=== PATIENT | male | born 1955 | race Caucasian/White ===

== ENCOUNTER → 2018-01-24 09:38 | Outpatient (CLI) | payer OTHER, SELFPAY ==
[2018-01-24 10:54] LABS: Add Manual Diff / Slide Review NO; Basophils Percent Auto 1.2 % (0-2); Eosinophils Percent Auto 3.7 % (2-4); Hematocrit 41.2 % (41-53); Hemoglobin 14.1 g/dL (13.5-17.5); Lymphocytes Percent Auto 26.9 % (25-40); Mean Corpuscular HGB Conc 34.3 % (30-36); Mean Corpuscular Hemoglobin 32.2 PG (26-34); Mean Corpuscular Volume 93.9 fL (80-100); Monocytes Percent Auto 9.9 % (3-14); Neutrophils Absolute Auto 2600 /uL (3000-5900); Neutrophils Percent Auto 58.3 % (50-75); Platelet Count 202 X10^3/uL (150-400); Red Blood Cell Count 4.39 X10^6/uL (4.5-5.9); Red Cell Distribution Width 13.1 % (11.6-14.8); White Blood Cell Count 4.4 X10^3/uL (4.5-11.0)
[2018-01-24 11:10] LABS: Alanine Aminotransferase 32 IU/L (21-72); Albumin 4.1 g/dL (3.5-5.0); Albumin Globulin Ratio 1.4 (1.0-2.8); Alkaline Phosphatase 43 U/L (38-126); Aspartate Aminotransferase 25 IU/L (17-59); BUN Creatinine Ratio 27.8 (6-22); Bilirubin Total 0.8 mg/dL (0.2-1.3); Blood Urea Nitrogen 25 mg/dL (9-20); Calcium 9.5 mg/dL (8.4-10.2); Carbon Dioxide 28 mmol/L (22-32); Chloride 106 mmol/L (98-107); Cholesterol 143 mg/dL (140-199); Estimated Glomerular Filt Rate > 60.0 mL/min (>60); Globulin 2.9 g/dL (1.7-4.1); Glucose 99 mg/dL (80-110); HDL Cholesterol 52 mg/dL (40-60); HEMOLYSIS < 15 (0-50); LDL Cholesterol Calculated 83 mg/dL (<100); Potassium 4.9 mmol/L (3.4-5.1); Sodium 141 mmol/L (137-145); Triglycerides 41 mg/dL (35-150)
== END ==
PROVIDERS: Visit Provider Internal Medicine
DX: C61 Malignant neoplasm of prostate (principal); Z00.01 Encounter for general adult medical examination with abnormal findings
CPT/HCPCS: 36415; 80053; 80061; 85025

== ENCOUNTER → 2018-01-25 12:16 | Outpatient (CLI) | payer OTHER, SELFPAY ==
--- NOTE | 2018-01-25 | DI.CT.S_ITS ---
PROCEDURE: CT SOFT TISSUE NECK W CON INDICATIONS: ENLARGED LYMPH NODE TECHNIQUE: After the administration of intravenous contrast, 3.0 mm axial sections acquired from the sella to the aortic arch. Additional oblique axial 3.0 mm sections acquired through the pharynx. 3 mm thick coronal and sagittal reformats were generated. For radiation dose reduction, the following was used: automated exposure control. COMPARISON: None. FINDINGS: Image quality: Excellent. Lymph nodes: No enlarged lymph nodes seen throughout the neck. The largest node is immediately posterior to the right mandibular ramus, deep to the inferior margin of the parotid gland and measures 8 mm in short diameter. Vessels: Visualized vasculature appears patent. The internal carotid arteries are tortuous bilaterally. The left vertebral artery is dominant. Neck spaces: The oropharynx, nasopharynx, and pharynx demonstrate no mucosal lesions. The vocal cords, false vocal cords, pyriform sinuses, epiglottis, vallecula, and tongue base all appear normal. Extramucosal spaces appear unremarkable. Glands: The parotid and submandibular glands appear normal. Thyroid gland appears normal. Miscellaneous: Visualized brain and orbits appear normal. Lung apices appear clear. Superficial soft tissues appear normal. Bones: No suspicious bony lesions. Cervical spine shows degenerative disc disease with narrowing C3-C6. Visualized sinuses and mastoids appear unremarkable. IMPRESSION: 1. No soft tissue mass or asymmetry. No lymphadenopathy by size criteria. Salivary and thyroid glands appear normal. Dictated by: Alfredito Riley M.D. on 01/25/2018 at 13:02 Approved by: Alfredito Riley M.D. on 01/25/2018 at 13:10
== END ==
PROVIDERS: Visit Provider Internal Medicine
DX: R59.9 Enlarged lymph nodes, unspecified (principal)
CPT/HCPCS: 70491; Q9967

== ENCOUNTER → 2019-10-31 15:26 | Outpatient (CLI) | payer OTHER, SELFPAY ==
[2019-11-02 00:53] LABS: SARS CoV19 IgG Negative (Negative)
== END ==
PROVIDERS: PCP Internal Medicine; Referring Provider Internal Medicine; Visit Provider Internal Medicine
DX: Z03.818 Encounter for observation for suspected exposure to other biological agents ruled out (principal)
CPT/HCPCS: 36415; 86769

== ENCOUNTER → 2020-04-27 18:37 | Outpatient (ROUT) | payer OTHER, SELFPAY | PROVIDERS: PCP Internal Medicine; Visit Provider Internal Medicine | DX: C61 Malignant neoplasm of prostate (principal) | CPT/HCPCS: 87086 ==

== ENCOUNTER → 2022-08-05 09:01 | Outpatient (CLI) | payer OTHER, SELFPAY ==
--- NOTE | 2022-08-05 | DI.NM.S_ITS ---
PROCEDURE: [place] BONE SCAN WHOLE BODY RADIOPHARMACEUTICAL: 21.2 mCi Tc-99m MDP IV. INDICATIONS: Malignant neoplasm of prostate TECHNIQUE: Delayed whole-body scintigrams were obtained approximately 3-4 hours after intravenous injection of radiotracer. Anterior and posterior views were acquired from vertex to feet. Additional left and right oblique views of the pelvis were obtained. COMPARISON: Merged With [facility], NM, NM BONE SCAN WHOLE BODY, 08/26/2021, 14:44. Merged With [facility], CT, CT ABDOMEN PELVIS WITH CONTRAST, 08/16/2021, 9:09. CT, CT SOFT TISSUE NECK W CON, 01/25/2018, 12:27. CT, THORAX WITHOUT CONTRAST, 12/15/2016, 6:56. Outside Facility, RG, CT THORAX WITH CONTRAST, 06/03/2015, 17:25. FINDINGS: There are foci of abnormal uptake involving cervical, thoracic and lumbar spine, sternum, iliac bones bilaterally, left 8th rib, right humeral neck and proximal right femur, consistent with osseous metastases. Compared with the last exam, osseous lesions are decreased in number and intensity. For example, there is lesions in calvarium, medial head of the right clavicle are no longer conspicuous. IMPRESSION: There is improved bone scan but scintigraphic findings of residual metastatic disease. Dictated by: Sandhya Dominguez M.D. on 08/05/2022 at 15:02 Approved by: Sandhya Dominguez M.D. on 08/05/2022 at 15:16
== END ==
PROVIDERS: PCP Internal Medicine; Referring Provider Internal Medicine Hematology & Oncology; Visit Provider Internal Medicine Hematology & Oncology
DX: C61 Malignant neoplasm of prostate (principal); C79.51 Secondary malignant neoplasm of bone
CPT/HCPCS: 78306; A9503

== ENCOUNTER → 2023-12-23 10:41 | Outpatient (CLI) | payer OTHER, SELFPAY ==
--- NOTE | 2023-12-23 | DI.RAD.S_ITS ---
PROCEDURE: XR HIP W PEL IF DONE RT 2V INDICATIONS: Pain in right hip TECHNIQUE: AP pelvis with lateral view(s) of the right hip(s). COMPARISON: [facility], [place], [place] BONE SCAN WHOLE BODY, 08/05/2022, 9:25. [facility], CT, CT ABDOMEN PELVIS WITH CONTRAST, 08/16/2021, 9:09. FINDINGS: Bones: No fractures or dislocations. Pelvic ring appears intact. Mild bilateral femoroacetabular joint space narrowing and juxta-articular osteophytosis. Multiple ill-defined sclerotic lesions predominantly in the right hemipelvis including the iliac bone, inferior pubic ramus and right intertrochanteric region and proximal femoral diaphysis. Soft tissues: The visualized bowel gas pattern is normal. No suspicious soft tissue calcifications. Metallic implants in the prostate gland. IMPRESSION: 1. No definite acute fracture or dislocation. If there is high clinical suspicion for a radiographically occult fracture, recommend cross-sectional imaging for further evaluation. 2. Multiple ill-defined sclerotic lesions predominantly involving the right hemipelvis including the right iliac bone, inferior pubic ramus and right intratrochanteric region and proximal femoral diaphysis, highly suspicious for metastatic disease. Given involvement of the weight-bearing structures, patient is at risk for a pathologic fracture. Consider a bone scan for further evaluation. Dictated by: Carmen Anton M.D. on 12/23/2023 at 15:51 Approved by: Carmen Anton M.D. on 12/23/2023 at 15:55
== END ==
PROVIDERS: PCP Internal Medicine; Referring Provider Internal Medicine; Visit Provider Internal Medicine
DX: M25.551 Pain in right hip (principal); M89.9 Disorder of bone, unspecified
CPT/HCPCS: 73502

== ENCOUNTER → 2024-03-20 12:58 | Outpatient (CLI) | payer OTHER, SELFPAY ==
[2024-03-20 13:50] LABS: Estimated Glomerular Filt Rate > 60 mL/min (>60)
== END ==
PROVIDERS: PCP Internal Medicine; Referring Provider Radiology Diagnostic Radiology; Visit Provider Radiology Diagnostic Radiology
DX: C49.9 Malignant neoplasm of connective and soft tissue, unspecified (principal)
CPT/HCPCS: 36415; 82565

== ENCOUNTER → 2024-03-21 07:55 | Outpatient (CLI) | payer OTHER, SELFPAY ==
--- NOTE | 2024-03-21 07:56 | DI.MRI.S_ITS ---
PROCEDURE: MR PELVIS WO/W CON INDICATIONS: SARCOMA TECHNIQUE: Noncontrast coronal T1 spin echo and STIR, sagittal T1 spin echo with fat saturation and STIR, axial T1 spin echo and T2 fast spin echo with fat saturation. After the administration of contrast, axial/sagittal/coronal T1 spin echo with fat saturation through the pelvis . COMPARISON: [facility], CT, CT BIOPSY BONE SUPERFICIAL, 01/30/2024, 8:45. [facility], MR, MR PELVIS PROSTATE SCREENING PROTOCOL, 01/17/2024, 14:06. [facility], CT, CT CHEST ABD PEL W CON, 03/21/2024, 9:51. FINDINGS: Image quality: Diagnostic Bones: No acute fracture identified in the left pelvic ring. Lumbosacral degenerative changes are present. No significant left hip effusion. Soft tissues: Increased size of the right pelvic lesion centered in the adductor compartment, measuring up to 11 x 13 x 13 cm, this previously measured about 11 cm. Increased size of surrounding pathologic lymph nodes, for example the right external iliac chain measuring 2.4 cm. This soft tissue mass involves the right acetabulum and pubic ring, with a probable nondisplaced pathologic fracture at the inferior pubic ring and superior pubic ring. This also involves the obturator muscles. This displaces the bladder slightly to the left, as well as the rectum. Post treatment changes of the prostate. There are numerous fluid levels and cystic areas within the mass IMPRESSION: Increased size of the right pelvic lesion and surrounding lymphadenopathy, with osseous involvement and right pubic ring pathologic fractures. The mass contains internal fluid levels and cystic components, and displaces the bladder and rectum slightly to the left Dictated by: Ahsan Tellez M.D. on 03/21/2024 at 11:12 Approved by: Ahsan Tellez M.D. on 03/21/2024 at 11:16
--- NOTE | 2024-03-21 07:57 | DI.CT.S_ITS ---
PROCEDURE: CT CHEST ABD PEL W CON INDICATIONS: SARCOMA TECHNIQUE: After the administration of intravenous contrast, 5 mm thick sections acquired from the lung apices to the symphysis. 5 mm coronal and sagittal reformats were performed, with additional 7 mm MIP reformats through the lungs. For radiation dose reduction, the following was used: automated exposure control, adjustment of mA and/or kV according to patient size. COMPARISON: Outside Facility, , CT THORAX WITH CONTRAST, 06/03/2015, 17:25. [facility], CT, CT ABDOMEN PELVIS WITH CONTRAST, 08/16/2021, 9:09. [facility], MR, MR PELVIS WO/W CON, 03/21/2024, 8:02. FINDINGS: Image quality: Diagnostic Lungs and pleura: Peripheral reticulation, moderate. This particularly involves the costophrenic angles. No dense airspace disease or pleural effusions. 1.1 cm right lower lobe pulmonary nodule, not seen in 2015. Other smaller nodules are also present. Mediastinum, heart, and esophagus: Mild distal esophageal wall thickening. No pathologic lymph nodes by size criteria. Mildly enlarged right hilar lymph node is present, probably similar to 2015 measuring 1.1 cm. Heart size is at the upper limit of normal Chest wall and thyroid: Unremarkable Liver: Subcentimeter lesions are too small to characterize, close attention on follow-up suggested. Gallbladder and biliary system: Unremarkable, nondilated Pancreas: The pancreatic duct is mildly prominent at 4-5 mm, similar to prior. No discrete mass Spleen: Nonenlarged Adrenals: No discrete nodules Kidneys: No solid mass or hydronephrosis Vessels and lymph nodes: The main portal vein is patent. No abdominal aortic aneurysm or pathologic lymph nodes by size criteria in the retroperitoneum. Pelvic findings are separately dictated Bowel and peritoneum: No acute small bowel obstruction. No pathologic ascites. Colonic diverticula. No pathologic ascites. Body wall: Tiny fat containing umbilical hernia. Pelvis: Separately dictated. Heterogeneous right pelvic mass is better assessed on MRI, with surrounding lymphadenopathy. The bladder is under distended and not well assessed. The bladder and rectum are slightly displaced to the left. Postsurgical changes of the prostate. Bones: Sclerotic bone lesions are present, compatible with metastases. Density of sclerosis has increased compared to 202. IMPRESSION: Increased size of the pelvic mass and surrounding lymph nodes compared to prior imaging, pelvis findings are better assessed on same-day MRI. New/increased pulmonary nodules suspicious for thoracic metastatic disease. Mildly prominent pancreatic duct at 4-5 mm without discrete mass. Subcentimeter liver lesions are identified, too small to characterize. Close attention on follow-up suggested. Sclerotic bone lesions are more conspicuous than prior imaging, increased sclerosis can be due to treatment effect. Disease progression is also possible. Consider bone scan or PET-CT to assess activity if clinically indicated Dictated by: Ahsan Tellez M.D. on 03/21/2024 at 11:24 Approved by: Ahsan Tellez M.D. on 03/21/2024 at 11:34
== END ==
LOC: MRI 07:55
PROVIDERS: PCP Internal Medicine; Referring Provider Orthopaedic Surgery; Visit Provider Orthopaedic Surgery
DX: C49.9 Malignant neoplasm of connective and soft tissue, unspecified (principal); R59.0 Localized enlarged lymph nodes; R91.8 Other nonspecific abnormal finding of lung field; M89.9 Disorder of bone, unspecified; K57.90 Diverticulosis of intestine, part unspecified, without perforation or abscess without bleeding
CPT/HCPCS: 71260; 72197; 74177; A9579; Q9967